=== PATIENT | female | born 1950 | race Caucasian/White ===

== ENCOUNTER 2020-12-25 15:30 | IRF | payer MEDICARE, SELFPAY ==
[2020-12-25 15:45] VITALS: BP 113/73; PULSE 83; RESP 20; TEMP 36.1; O2SAT 99; BMI 14.8
--- NOTE | 2020-12-25 18:29 | ADMGEN ---
This patient, Bita Saleh, was admitted to [facility] Room 226-01. Patient/family oriented to hospital policies and general routines including ID bracelet, bed and alarms, visiting hours, pain management, procedures, bathroom and other care routines, personal items, smoking policy, room service/diet, and visiting hours. Information on how to activate the Rapid Response Team has been discussed. Patient/Family are encouraged to report perceived risks to care and to ask questions if they do not understand what they are told or what they should do.
[2020-12-25 18:49] VITALS: PULSE 83; RESP 20; O2SAT 99
[2020-12-25 20:00] VITALS: PULSE 87; RESP 18; O2SAT 99
[2020-12-25] MEDS: HEPARIN SODIUM 5,000 UNITS/ML VIAL 5000 UNITS SUB-Q (20:48)
[2020-12-25] MEDS: MEGESTROL ACETATE (*CHEMO) 40 MG TABLET PO (20:49)
[2020-12-25] MEDS: PANTOPRAZOLE SOD SESQUIHYDRATE 20 MG TAB PO (20:49)
[2020-12-25] MEDS: NIACIN SA 500 MG TABLET PO (20:49)
[2020-12-25] MEDS: levETIRAcetam ORAL SOL 500 MG/5 ML UDC PO (20:49)
[2020-12-25 21:54] VITALS: BP 98/63; PULSE 87; RESP 18; TEMP 36.3; O2SAT 99
[2020-12-26 04:53] VITALS: BP 100/58; PULSE 79; RESP 18; TEMP 36.7; O2SAT 98
[2020-12-26 05:21] LABS: Basophils Percent Auto 0.7 % (0.2-1.2); Eosinophils Absolute Auto 0.1 K/mm3 (0-0.3); Eosinophils Percent Auto 1.3 % (0-4.4); Hematocrit 33.8 % (37.0-47.0); Hemoglobin 11.7 g/dL (12.0-15.0); Immature Granulocyte Absolute 0.03 K/mm3 (0.00-0.031); Immature Granulocyte Percent A 0.5 % (0-0.5); Lymphocytes Percent Auto 16.3 % (18.3-44.2); Mean Corpuscular HGB Conc 34.6 g/dl (32-36); Mean Corpuscular Hemoglobin 37.7 pg (26-34); Mean Platelet Volume 10.4 fl (7.4-10.4); Monocytes Absolute Auto 1.1 K/mm3 (0.1-0.6); Monocytes Percent Auto 18.1 % (2.6-8.5); Neutrophils Absolute Auto 3.9 K/mm3 (1.3-6.7); Neutrophils Percent Auto 63.1 % (45.5-73.1); Platelet Count Result 161 k/mm3 (150-375); Red Cell Distribution Width 13.6 % (11.5-14.5); White Blood Count 6.1 K/mm3 (4.5-10.0)
[2020-12-26 05:36] LABS: Anion Gap 4 mmol/L (8-16); Blood Urea Nitrogen 7 mg/dL (7-17); Calcium 9.1 mg/dL (8.4-10.2); Carbon Dioxide 32 mmol/L (22-30); Chloride 97 mmol/L (98-107); Estimated CRCL calculation 59 ml/min; Estimated Glomerular Filt Rate > 60; Glucose 117 mg/dL (65-105); Potassium 3.4 mmol/L (3.4-5.0); Sodium 133 mmol/L (137-145)
[2020-12-26] MEDS: AMOXICILLIN/CLAVULANATE K 500-125 MG TAB 1 TABLET PO ×3 (06:51→21:02)
[2020-12-26] MEDS: HEPARIN SODIUM 5,000 UNITS/ML VIAL 5000 UNITS SUB-Q ×3 (06:51→21:01)
[2020-12-26 07:15] LABS: Glucose Point of Care 116 (65-105)
[2020-12-26] MEDS: ATORVASTATIN 40 MG TABLET PO (08:26)
[2020-12-26] MEDS: RALOXIFENE HCL (*CHEMO) 60 MG TABLET PO (08:26)
[2020-12-26] MEDS: CALCIUM CARBONATE (OSCAL) 500 MG TABLET PO ×2 (08:26→17:05)
[2020-12-26] MEDS: levETIRAcetam ORAL SOL 500 MG/5 ML UDC PO ×2 (08:27→21:02)
[2020-12-26] MEDS: MEGESTROL ACETATE (*CHEMO) 40 MG TABLET PO ×2 (08:27→21:02)
[2020-12-26] MEDS: SENNOSIDES 8.6 MG TABLET 17.2 MG PO (08:27)
[2020-12-26] MEDS: NIACIN SA 500 MG TABLET PO ×2 (08:27→21:02)
[2020-12-26] MEDS: predniSONE 5 MG TABLET PO (08:27)
[2020-12-26 10:40] VITALS: BP 134/85
[2020-12-26 10:41] VITALS: BP 105/65; BP 76/41
--- NOTE | 2020-12-26 10:42 | PC.NURSE ---
taty reporting that patient became very dizzy when standing during therapy. orthostatic blood pressures done and documented. therapy stated that when standing b/p was done patient did not feel dizzy when up at that time
[2020-12-26 11:48] LABS: Glucose Point of Care 140 (65-105)
[2020-12-26 12:28] VITALS: BMI 14.8
--- NOTE | 2020-12-26 13:24 | PCNSR ---
On 12/26/20, the student, Maria Esther Jacobsen, provided care and completed [facility] documentation on this patient. I have reviewed the student's documentation and agree with the findings.
[2020-12-26 14:00] VITALS: BP 132/80; PULSE 104; RESP 20; TEMP 36.6; O2SAT 100
--- NOTE | 2020-12-26 14:03 | WPDREHABHP ---
H&P: HPI History of Present Illness Date/Time: 12/26/20 14:03 Chief Complaint: major multiple trauma with brain or spinal injury Narrative: Bita Saleh is a 70 year old femalHISTORY OF PRESENT ILLNESS: 70 years old lady has been admitted to acute rehab with the primary rehab impairment category of 18. That is major multiple trauma with brain or spinal injury in addition to the etiological diagnosis of left sylvian subarachnoid hemorrhage, T10 vertebral body compression fracture, bilateral nasal bone fractures. The patient was seen [id number] on December 26, 2020 at 11:30 a.m. # history and physical exam: 70 years old right-handed female with a past medical history of GERD, hypertension, hyperlipidemia, Sharda ptosis, prior renal transplant, and osteopenia presented to [facility] on in December 2020 after being found down by her sister. The patient arrived awake and alert oriented x1 in a cervical collar, with no recollection of the event before during or after. Physical examination revealed serum an impaction, ecchymosis of the left maxilla and left periorbital region, 1cm laceration below the left eye, small abrasion to the right knee, ecchymosis of the left knee, and twitching in the left eye. CT imaging of the head demonstrated moderate volume left subarachnoid blood products predominantly along the temporal sulci and sylvian fissure. CT of the face revealed bilateral nasal bone and nasal process fractures moderately displaced, a left periorbital laceration with associated swelling, and left maxillary sinus opacification with blood products. CT of the spine revealed a T10 compression fracture. Neurosurgery service was consulted for the subarachnoid hemorrhage and place the patient on Keppra 500 mg b.i.d. for 7 days, q.4 hours neuro check, agree to subcu heparin for DVT prophylaxis. The patient is to follow up with Neurosurgery in 4 to 5 weeks with a repeat head CT scan. The left eyebrow laceration was repaired at the bedside. Ortho spine was consulted for the T10 compression fracture, patient was placed in a Jewitt brace with instruction for activity as tolerated, ENT and plastics were consulted for the nasal bone fracture and occult maxillary fractures and plan for non operative management at this time. Patient will be scheduled for an outpatient surgery once recovered. She was placed on oral Augmentin for 7 days. The patient was admitted to Trauma ICU. Nephrology was consulted for the patient's prior history of renal transplant and patient is to remain on home dose of tacrolimus 1 mg b.i.d. and daily prednisone. Ophthalmologic was consulted for periorbital ecchymosis and patient was to follow up on an outpatient basis. Geriatrics were consulted for delirium and interventions were instituted which resulted in the resolution of the delirium. The patient experience acute blood loss anemia for which she was monitored daily with CBC and she is currently hemodynamically stable with a hemoglobin of 11.1. The patient will discharged to rehab on subcutaneous heparin for DVT prophylaxis. #COVID: The patient has not traveled outside the [place] or had contact with someone who is ill that is travel outside the [place] in the past 21 days. The patient has not traveled to an area of the [place] there is experiencing known transmission of the Coronavirus and has not had close personal contact with anyone that has. The patient does not have a fever. The patient is not experiencing lower respiratory illness symptoms. # Therapy was initiated at the acute care facility and the patient was transferred [facility], [facility] FALLS OR SURGERIES: the patient has had no major surgery in the last 100 days. The patient has had falls in the past year. The patient has had no falls with injury in the past year. The patient reports falls in the past 6 months. PAST MEDICAL HISTORY: GERD, hypertension, keratosis, osteopenia, sk
--- NOTE | 2020-12-26 14:42 | RPD ---
INDIVIDUALIZED PLAN OF CARE FOR Bita Saleh Brief Synthesis of Pre-Admission Screen, Post-Admission Evaluation and Therapy Evaluations: The patient presents to rehab with Major Multiple Trauma With with the following injuries: subarachnoid hemorrhage, T10 compression fracture, bilateral nasal bone and nasal process fractures, occult maxillary fracture, and left orbital floor fracture. Comorbidities include protein-calorie malnutrition, hypertension, acute blood loss anemia, acute respiratory failure, acute post-traumatic pain, acute mental status changes, delirium, mild periorbital ecchymosis, left eyelid laceration, hypertension, hyperlipidemia, nausea, osteoporosis, and s/p renal transplant.The complexity of the patient's medical management, nursing, and therapy needs require an inpatient rehab hospital stay with a physician-led interdisciplinary team approach. The patient?s needs will be best met in an intensive program vs. at a lower level of care. The patient requires physician services for medical oversight, management of protein-calorie malnutrition, hypertension, acute blood loss anemia, acute respiratory failure, acute post-traumatic pain, acute mental status changes, delirium, mild periorbital ecchymosis, left eyelid laceration, hypertension, hyperlipidemia, nausea, osteoporosis, s/p renal transplant () in setting of present comorbidities, and pain management. The patient requires nursing services for anticoagulation therapy, DVT prophylactics, infection protection, medication management and education, pressure relief, and wound care. Deficits include:ADLs, Balance, Endurance, Family Training/Education, Mobility, Pain Management, ROM, Safety, Strength, and Transfers. Judo Instructor/Case Management for: Discharge Planning and Patient/Family Counseling Physical Therapy: 5 days per week for 90 minutes. Treatments may include: Therapeutic Exercise, Gait Training, Neuromuscular Re-education, Transfer Training, Community Reintegration, Bed Mobility, Patient/Family Education, Wheelchair Mobility Group Therapy/Concurrent Therapy Rationales: -Improve attention span during functional activities in a distracted environment. -Enhance problem solving and/or adequate judgment skills during functional activities in a distracted environment. -Promote increased safety awareness in a distracted environment to reduce fall risk with functional tasks, transfers, and ambulation to allow a more safe, self-sufficient return to the home environment. -Improve dynamic balance skills to promote safety and independence with functional activities in a distracted environment for maximum gain. Occupational Therapy: 5 days per week for 90 minutes. Treatments may include: Therapeutic Exercise, Therapeutic Activity, Cognitive Training, Self-Care Transfer Training, Community Reintegration, Home Management, Patient/Family Education, Wheelchair Mobility Training, Energy Conservation Training Group Therapy/Concurrent Therapy Rationales: -Allow therapist to observe and teach generalization and carry-over of skills learned in individual therapy. -Enhance problem solving and sequencing skills during therapeutic activities in a distracted environment. -Promote increased safety awareness in a realistic setting to reduce fall risk with functional tasks due to visual and verbal distractions. -Increase functional level with ADLs, ADL transfers and use of adaptive equipment through therapeutic activities with others while promoting safety to allow a more safe, self-sufficient return home. Medical Prognosis: Good Anticipated Length of Stay: 10 days Rehab Goals: Eating Goal: 06-Independent Oral Hygiene Goal: 06-Independent Toileting Hygiene Goal: 06-Independent Shower/Bathe Self Goal: 06-Independent Upper Body Dressing Goal: 03-Partial/Moderate Assistance Lower Body Dressing Goal: 06-Independent Putting On/Taking Off Footwear Goal: 06-Independent Rolling Left and Right Goal: 06-Indepen
[2020-12-26] MEDS: SACCHAROMYCES BOULARDII 250 MG CAPSULE PO (17:05)
[2020-12-26 20:00] VITALS: PULSE 90; RESP 18; O2SAT 96
[2020-12-26] MEDS: PANTOPRAZOLE SOD SESQUIHYDRATE 20 MG TAB PO (21:02)
[2020-12-26 21:45] VITALS: BP 94/62; PULSE 90; RESP 18; TEMP 36.8; O2SAT 96
[2020-12-27 05:22] VITALS: BP 90/46; PULSE 94; RESP 18; TEMP 36.8; O2SAT 98
[2020-12-27] MEDS: AMOXICILLIN/CLAVULANATE K 500-125 MG TAB 1 TABLET PO ×3 (06:05→20:12)
[2020-12-27] MEDS: HEPARIN SODIUM 5,000 UNITS/ML VIAL 5000 UNITS SUB-Q ×3 (06:05→20:12)
[2020-12-27] MEDS: ACETAMINOPHEN 325 MG TABLET 650 MG PO (07:51)
[2020-12-27] MEDS: CALCIUM CARBONATE (OSCAL) 500 MG TABLET PO ×2 (08:41→17:26)
[2020-12-27] MEDS: RALOXIFENE HCL (*CHEMO) 60 MG TABLET PO (08:41)
[2020-12-27] MEDS: SACCHAROMYCES BOULARDII 250 MG CAPSULE PO ×2 (08:41→17:26)
[2020-12-27] MEDS: predniSONE 5 MG TABLET PO (08:42)
[2020-12-27] MEDS: ATORVASTATIN 40 MG TABLET PO (08:42)
[2020-12-27] MEDS: levETIRAcetam ORAL SOL 500 MG/5 ML UDC PO ×2 (08:42→20:12)
[2020-12-27] MEDS: NIACIN SA 500 MG TABLET PO ×2 (08:42→20:12)
[2020-12-27] MEDS: MEGESTROL ACETATE (*CHEMO) 40 MG TABLET PO ×2 (08:48→20:12)
[2020-12-27 14:00] VITALS: BP 97/66; PULSE 110; RESP 18; TEMP 36.3; O2SAT 97
--- NOTE | 2020-12-27 16:08 | PHAR ---
Home medication seen in pharmacy, returned to nurse at rx window. Tacrolimus 1mg capsule
[2020-12-27] MEDS: PANTOPRAZOLE SOD SESQUIHYDRATE 20 MG TAB PO (20:12)
[2020-12-28 06:00] VITALS: BP 135/80; PULSE 89; RESP 20; TEMP 36.6; O2SAT 98
[2020-12-28] MEDS: HEPARIN SODIUM 5,000 UNITS/ML VIAL 5000 UNITS SUB-Q ×3 (06:08→20:22)
[2020-12-28] MEDS: AMOXICILLIN/CLAVULANATE K 500-125 MG TAB 1 TABLET PO ×3 (06:08→20:20)
[2020-12-28] MEDS: ATORVASTATIN 40 MG TABLET PO (09:24)
[2020-12-28] MEDS: NIACIN SA 500 MG TABLET PO ×2 (09:24→20:19)
[2020-12-28] MEDS: SACCHAROMYCES BOULARDII 250 MG CAPSULE PO ×2 (09:24→16:07)
[2020-12-28] MEDS: predniSONE 5 MG TABLET PO (09:24)
[2020-12-28] MEDS: MEGESTROL ACETATE (*CHEMO) 40 MG TABLET PO ×2 (09:24→20:18)
[2020-12-28] MEDS: CALCIUM CARBONATE (OSCAL) 500 MG TABLET PO ×2 (09:24→16:07)
[2020-12-28] MEDS: levETIRAcetam ORAL SOL 500 MG/5 ML UDC PO ×2 (09:24→20:18)
[2020-12-28] MEDS: RALOXIFENE HCL (*CHEMO) 60 MG TABLET PO (09:25)
[2020-12-28 14:00] VITALS: BP 102/64; PULSE 89; RESP 18; TEMP 36.5; O2SAT 97
[2020-12-28] MEDS: PANTOPRAZOLE SOD SESQUIHYDRATE 20 MG TAB PO (20:21)
[2020-12-28 22:00] VITALS: BP 103/65; PULSE 93; RESP 18; TEMP 36.8; O2SAT 95
[2020-12-29] MEDS: HEPARIN SODIUM 5,000 UNITS/ML VIAL 5000 UNITS SUB-Q ×3 (05:37→22:27)
[2020-12-29] MEDS: AMOXICILLIN/CLAVULANATE K 500-125 MG TAB 1 TABLET PO ×3 (05:37→22:27)
[2020-12-29 06:00] VITALS: BP 102/60; PULSE 83; RESP 18; TEMP 36.9; O2SAT 95
[2020-12-29 08:00] VITALS: PULSE 83; RESP 18; O2SAT 95
[2020-12-29] MEDS: MEGESTROL ACETATE (*CHEMO) 40 MG TABLET PO ×2 (08:40→20:07)
[2020-12-29] MEDS: CALCIUM CARBONATE (OSCAL) 500 MG TABLET PO ×2 (08:40→17:55)
[2020-12-29] MEDS: RALOXIFENE HCL (*CHEMO) 60 MG TABLET PO (08:40)
[2020-12-29] MEDS: levETIRAcetam ORAL SOL 500 MG/5 ML UDC PO (08:40)
[2020-12-29] MEDS: ATORVASTATIN 40 MG TABLET PO (08:40)
[2020-12-29] MEDS: NIACIN SA 500 MG TABLET PO ×2 (08:40→20:07)
[2020-12-29] MEDS: SACCHAROMYCES BOULARDII 250 MG CAPSULE PO ×2 (08:40→17:55)
[2020-12-29] MEDS: predniSONE 5 MG TABLET PO (08:40)
[2020-12-29 14:00] VITALS: BP 105/60; PULSE 102; RESP 20; TEMP 36.8; O2SAT 100
--- NOTE | 2020-12-29 14:37 | WPDNEURORHBP ---
Subjective Date/time seen: 12/29/20 14:37 70 years old with major multiple trauma with brain or spinal injury in addition to the etiological diagnosis of left sylvian subarachnoid hemorrhage, T10 vertebral body compression fracture and bilateral nasal bone fractures Review of Systems Review of Systems: All systems reviewed & are unremarkable except as noted in HPI and below Functional Status Ambulation Ability Ability to Ambulate 10 Feet: Independent Ability to Ambulate 50 Feet With 2 Turns: Independent Ability to Ambulate 150 Feet: Independent Ambulation Assistive Devices: Walker, Wheeled Transfers Ability Ability to Transfer In/Out of Chair: Contact Guard Exam Const: General: comfortable, alert and awake Nutritional Appearance: thin and underweight Orientation/consciousness: patient oriented x3 Limitations: physical limitations HENMT: Head: normocephalic Ears: hearing grossly normal bilaterally General nose exam: Normal external nose present and No nasal discharge present Face and sinus: normal facial exam Mouth: Yes Normal oral and palatal mucosa present Eyes: Visual Smallwood: normal visual smallwood by confrontation Alignment and Position: alignment normal Periorbital: periorbital findings abnormal ( left ecchymosis) Conjunctivae: conjunctivae normal Sclera: sclerae normal Cornea: corneas normal Pupils: Equal, round and reactive pupils present EOM: EOMs intact bilaterally Direct Ophthalmoscopy: normal light reflex Neck: Neck: full ROM Resp: Effort & Inspection: normal respiratory effort Auscultation: clear to auscultation bilaterally Cardio: Rate: regular rate Rhythm: regular rhythm GI: Auscultation: normal bowel sounds Neuro: General: patient oriented x3 Cranial nerves: Yes CN's II-XII intact bilaterally Cognition (Neuro): normal cognition Speech: normal speech Motor exam (neuro): 5/5 motor strength present throughout ( generally decreased) Sensory Exam: normal sensation Deep tendon reflexes (DTR's): Right triceps reflex intensity grade: 1+, Left triceps reflex intensity grade: 1+, Rt Biceps (C5, C6): 1+, Left biceps reflex intensity grade: 1+, Right brachioradialis reflex intensity grade: 1+, Left brachioradialis reflex intensity grade: 1+, Right patellar reflex intensity grade: 1+, Left patellar reflex intensity grade: 1+, Right ankle reflex intensity grade: 1+ and Left ankle reflex intensity grade: 1+ Plantar Reflex Responses: downgoing: bilateral Coordination: [id number] test normal Psych: Appearance: grossly normal Speech and movement: Normal speech and movement present Affect: normal affect Attitude: cooperative Thought process: Normal thought process present Thought content: Yes Normal thought content present Insight: Fair insight present (Psych) Judgement: Fair judgement present (Psych) Objective Data Vital Signs Vital Signs: Vital Signs - 24 hr 12/28/20 22:00 12/29/20 06:00 12/29/20 08:00 Temperature 36.8 C 36.9 C Pulse Rate 93 83 83 Respiratory Rate 18 18 18 Blood Pressure 103/65 102/60 Pulse Oximetry 95 95 95 12/29/20 14:00 Temperature 36.8 C Pulse Rate 102 H Respiratory Rate 20 Blood Pressure 105/60 Pulse Oximetry 100 Intake/Output Intake/Output: Intake & Output 12/26/20 12/27/20 12/28/20 12/29/20 23:59 23:59 23:59 23:59 Intake Total 720 720 840 720 Balance 720 720 840 720 Meds/Results Medications: Active Medications Generic Name Dose Route Start Last Admin Trade Name Freq PRN Reason Stop Dose Admin Acetaminophen 650 mg 12/25/20 19:37 12/27/20 07:51 Acetaminophen 325 Mg Tablet PO 650 mg Q4-6H PRN Administration Mild Pain (1-3) Amoxicillin/Clavulanate Potassium 1 tablet 12/26/20 06:00 12/29/20 14:33 Amoxicillin/Clavulanate K 500-125 Mg Tab PO 01/01/21 22:01 1 tablet Q8HR SANCHO Administration Atorvastatin Calcium 40 mg 12/26/20 09:00 12/29/20 08:40 Atorvastatin 40 Mg Tablet PO 40 mg DAILY SANCHO Administration Calcium
[2020-12-29] MEDS: PANTOPRAZOLE SOD SESQUIHYDRATE 20 MG TAB PO (20:07)
[2020-12-29] MEDS: levETIRAcetam 500 MG TABLET PO (20:07)
[2020-12-29 22:00] VITALS: BP 108/62; PULSE 88; RESP 16; TEMP 37.1; O2SAT 98
[2020-12-30] MEDS: HEPARIN SODIUM 5,000 UNITS/ML VIAL 5000 UNITS SUB-Q (05:55)
[2020-12-30] MEDS: AMOXICILLIN/CLAVULANATE K 500-125 MG TAB 1 TABLET PO ×3 (05:55→20:57)
[2020-12-30 06:00] VITALS: BP 143/85; PULSE 94; RESP 18; TEMP 36.6; O2SAT 96
[2020-12-30] MEDS: SACCHAROMYCES BOULARDII 250 MG CAPSULE PO ×2 (08:10→17:16)
[2020-12-30] MEDS: NIACIN SA 500 MG TABLET PO ×2 (08:11→20:57)
[2020-12-30] MEDS: CALCIUM CARBONATE (OSCAL) 500 MG TABLET PO ×2 (08:11→17:16)
[2020-12-30] MEDS: RALOXIFENE HCL (*CHEMO) 60 MG TABLET PO (08:11)
[2020-12-30] MEDS: ATORVASTATIN 40 MG TABLET PO (08:11)
[2020-12-30] MEDS: predniSONE 5 MG TABLET PO (08:11)
[2020-12-30] MEDS: levETIRAcetam 500 MG TABLET PO (08:11)
[2020-12-30] MEDS: MEGESTROL ACETATE (*CHEMO) 40 MG TABLET PO ×2 (08:11→20:56)
--- NOTE | 2020-12-30 09:10 | PCPTNOTE ---
Bita Saleh was evaluated for a wheeled walker on 12/30/2020 by this physical therapist. The wheeled walker will resolve patient's mobility limitations and will be used for ADL's within the home. The patient can safely use the wheeled walker. ?The wheeled walker will resolve the patient?s mobility deficits, including orthostasis, dizziness, decreased strength and balance.
--- NOTE | 2020-12-30 11:45 | PC.NURSE ---
therapy reporting unusual rash on patient, it is widespread: pink to red in color- fine, flat, does not itch. patient has not had any unusual meds or foods this morning. no different soaps used. will continue to monitor and report to
--- NOTE | 2020-12-30 12:00 | PC.NURSE ---
Rash much professor sculpture in color and much less widespread over body, still without itch.
--- NOTE | 2020-12-30 12:41 | PC.NURSE ---
Dr. Griggs here, orders to continue to monitor rash, Keppra d/c'd and heparin d/c'd. Patient remains without c/o discomfort or itching
--- NOTE | 2020-12-30 13:54 | WPDNEURORHBP ---
Subjective Date/time seen: 12/30/20 13:54 70 years old with major multiple trauma, in addition to the left sylvian subarachnoid hemorrhage and T10 vertebral body compression fracture and bilateral nasal bone fracture has been involving the physical therapy and occupational therapy, her lab revealed WBC 6.1 hemoglobin 11.7 platelet count 161, basic metabolic panel is fairly normal with blood sugar of 140 and calcium of 9.1, she remained stable with temp of 36.6? pulse 94 Thatch 18 pulse ox 96 on room air and a blood pressure 143/85 Review of Systems Review of Systems: All systems reviewed & are unremarkable except as noted in HPI and below Functional Status Ambulation Ability Ability to Ambulate 10 Feet: Independent Ability to Ambulate 50 Feet With 2 Turns: Independent Ability to Ambulate 150 Feet: Independent Ambulation Assistive Devices: Walker, Wheeled Transfers Ability Ability to Transfer In/Out of Chair: Contact Guard Exam Const: General: cooperative, comfortable and no acute distress Nutritional Appearance: average body habitus, thin and underweight Orientation/consciousness: patient oriented x3 HENMT: Head: normocephalic Ears: hearing grossly normal bilaterally General nose exam: No nasal discharge present Face and sinus: normal facial exam Mouth: Yes Normal oral and palatal mucosa present Eyes: General: appearance normal, both eyes and all related structures Alignment and Position: alignment normal Periorbital: periorbital findings normal Eyelids: eyelids normal Conjunctivae: conjunctivae normal Sclera: sclerae normal Cornea: corneas normal Pupils: Equal, round and reactive pupils present Neck: Neck: full ROM Resp: Effort & Inspection: able to speak in complete sentences Auscultation: clear to auscultation bilaterally Cardio: Rate: regular rate Rhythm: regular rhythm GI: Auscultation: normal bowel sounds Skin: General skin exam: no rashes or lesions noted Neuro: General: patient oriented x3 Cranial nerves: Yes CN's II-XII intact bilaterally Cognition (Neuro): normal cognition Speech: normal speech Gait exam (Neuro): Normal gait present Motor exam (neuro): Pronator motor function not present, No tremor noted and Abnormal motor strength present Sensory Exam: normal sensation Psych: Appearance: grossly normal Objective Data Vital Signs Vital Signs: Vital Signs - 24 hr 12/29/20 14:00 12/29/20 22:00 12/30/20 06:00 Temperature 36.8 C 37.1 C 36.6 C Pulse Rate 102 H 88 94 Respiratory Rate 20 16 18 Blood Pressure 105/60 108/62 143/85 H Pulse Oximetry 100 98 96 Intake/Output Intake/Output: Intake & Output 12/27/20 12/28/20 12/29/20 12/30/20 23:59 23:59 23:59 23:59 Intake Total 720 840 720 240 Balance 720 840 720 240 Meds/Results Medications: Active Medications Generic Name Dose Route Start Last Admin Trade Name Opal PRN Reason Stop Dose Admin Acetaminophen 650 mg 12/25/20 19:37 12/27/20 07:51 Acetaminophen 325 Mg Tablet PO 650 mg Q4-6H PRN Administration Mild Pain (1-3) Amoxicillin/Clavulanate Potassium 1 tablet 12/26/20 06:00 12/30/20 05:55 Amoxicillin/Clavulanate K 500-125 Mg Tab PO 01/01/21 22:01 1 tablet Q8HR SANCHO Administration Atorvastatin Calcium 40 mg 12/26/20 09:00 12/30/20 08:11 Atorvastatin 40 Mg Tablet PO 40 mg DAILY SANCHO Administration Calcium Carbonate 500 mg 12/26/20 08:00 12/30/20 08:11 Calcium Carbonate (Oscal) 500 Mg Tablet PO 500 mg BIDWM SANCHO Administration Ergocalciferol 50,000 unit 01/05/21 09:00 Ergocalciferol 50,000 Unit Capsule PO Mo SANCHO Folic Acid/Cyanocobalamin/pyridoxin 1 tab 12/26/20 09:00 12/30/20 08:10 Cyanocobalamin/Fa/Pyridoxine (Foltx) Tablet PO 01/25/21 09:01 1 tab DAILY SANCHO Administration Loperamide HCl 2 mg 12/25/20 19:37 Loperamide Hcl 2 Mg Capsule PO DAILY PRN Diarrhea Megestrol Acetate 40 mg 12/25/20 21:00 12/30/20 08:11 Megestrol Acetate (*Chemo)
[2020-12-30 14:00] VITALS: BP 97/69; PULSE 112; RESP 18; TEMP 36.8; O2SAT 98
[2020-12-30 20:30] VITALS: PULSE 91; RESP 20; O2SAT 100
[2020-12-30] MEDS: PANTOPRAZOLE SOD SESQUIHYDRATE 20 MG TAB PO (21:00)
[2020-12-30 21:06] VITALS: BP 139/80; PULSE 91; RESP 20; TEMP 36.2; O2SAT 100
[2020-12-31] MEDS: AMOXICILLIN/CLAVULANATE K 500-125 MG TAB 1 TABLET PO ×3 (05:33→19:57)
[2020-12-31 05:38] VITALS: BP 109/64; PULSE 80; RESP 18; TEMP 37.1; O2SAT 99
[2020-12-31] MEDS: CALCIUM CARBONATE (OSCAL) 500 MG TABLET PO ×2 (08:14→17:28)
[2020-12-31] MEDS: SACCHAROMYCES BOULARDII 250 MG CAPSULE PO ×2 (09:23→17:28)
[2020-12-31] MEDS: predniSONE 5 MG TABLET PO (09:23)
[2020-12-31] MEDS: NIACIN SA 500 MG TABLET PO ×2 (09:23→19:57)
[2020-12-31] MEDS: ATORVASTATIN 40 MG TABLET PO (09:24)
[2020-12-31] MEDS: RALOXIFENE HCL (*CHEMO) 60 MG TABLET PO (09:24)
[2020-12-31] MEDS: MEGESTROL ACETATE (*CHEMO) 40 MG TABLET PO ×2 (09:24→19:57)
[2020-12-31 14:00] VITALS: BP 117/73; PULSE 82; RESP 20; TEMP 36.6; O2SAT 97
[2020-12-31] MEDS: PANTOPRAZOLE SOD SESQUIHYDRATE 20 MG TAB PO (19:57)
[2020-12-31 22:00] VITALS: BP 107/64; PULSE 66; RESP 16; TEMP 36.8; O2SAT 97
[2021-01-01] MEDS: AMOXICILLIN/CLAVULANATE K 500-125 MG TAB 1 TABLET PO ×3 (05:56→20:23)
[2021-01-01 06:00] VITALS: BP 113/68; PULSE 83; RESP 16; TEMP 37; O2SAT 97
[2021-01-01] MEDS: NIACIN SA 500 MG TABLET PO ×2 (09:13→20:23)
[2021-01-01] MEDS: predniSONE 5 MG TABLET PO (09:13)
[2021-01-01] MEDS: SACCHAROMYCES BOULARDII 250 MG CAPSULE PO ×2 (09:13→17:53)
[2021-01-01] MEDS: CALCIUM CARBONATE (OSCAL) 500 MG TABLET PO ×2 (09:14→17:53)
[2021-01-01] MEDS: MEGESTROL ACETATE (*CHEMO) 40 MG TABLET PO ×2 (09:14→20:23)
[2021-01-01] MEDS: RALOXIFENE HCL (*CHEMO) 60 MG TABLET PO (09:15)
[2021-01-01] MEDS: ATORVASTATIN 40 MG TABLET PO (09:15)
--- NOTE | 2021-01-01 12:51 | WPDNEURORHBP ---
Subjective Date/time seen: 01/01/21 12:51 70 years old with major multiple trauma and subarachnoid hemorrhage in addition to T10 vertebral body compression fracture bilateral nasal bone fracture has been involved the physical therapy and occupational therapy and has been extremely pleasant and cooperative her pulse is 97 blood pressure 113/68 temp 37.0? and no new lab Functional Status Ambulation Ability Ability to Ambulate 10 Feet: Independent Ability to Ambulate 50 Feet With 2 Turns: Independent Ability to Ambulate 150 Feet: Independent Ambulation Assistive Devices: Walker, Wheeled Transfers Ability Ability to Transfer In/Out of Chair: Independent Exam Const: General: comfortable and no acute distress Nutritional Appearance: average body habitus Limitations: physical limitations HENMT: Head: normocephalic Ears: hearing grossly normal bilaterally General nose exam: Normal external nose present Eyes: General: appearance normal, both eyes and all related structures Neck: Neck: full ROM Resp: Effort & Inspection: normal respiratory effort Auscultation: clear to auscultation bilaterally Cardio: Rate: regular rate Rhythm: regular rhythm GI: Auscultation: normal bowel sounds Neuro: General: patient oriented x3 Cranial nerves: Yes CN's II-XII intact bilaterally Cognition (Neuro): normal cognition Speech: normal speech Motor exam (neuro): Pronator motor function not present and No tremor noted Sensory Exam: normal sensation Deep tendon reflexes (DTR's): Right triceps reflex intensity grade: 1+, Left triceps reflex intensity grade: 1+, Rt Biceps (C5, C6): 1+, Left biceps reflex intensity grade: 1+, Right brachioradialis reflex intensity grade: 1+, Left brachioradialis reflex intensity grade: 1+, Right patellar reflex intensity grade: 1+, Left patellar reflex intensity grade: 1+, Right ankle reflex intensity grade: 1+ and Left ankle reflex intensity grade: 1+ Plantar Reflex Responses: downgoing: bilateral Psych: Appearance: grossly normal Objective Data Vital Signs Vital Signs: Vital Signs - 24 hr 12/31/20 14:00 12/31/20 22:00 01/01/21 06:00 Temperature 36.6 C 36.8 C 37.0 C Pulse Rate 82 66 83 Respiratory Rate 20 16 16 Blood Pressure 117/73 107/64 113/68 Pulse Oximetry 97 97 97 Intake/Output Intake/Output: Intake & Output 12/29/20 12/30/20 12/31/2018/21 23:59 23:59 23:59 23:59 Intake Total 720 1200 1200 240 Balance 720 1200 1200 240 Meds/Results Medications: Active Medications Generic Name Dose Route Start Last Admin Trade Name Opal PRN Reason Stop Dose Admin Acetaminophen 650 mg 12/25/20 19:37 12/27/20 07:51 Acetaminophen 325 Mg Tablet PO 650 mg Q4-6H PRN Administration Mild Pain (1-3) Amoxicillin/Clavulanate Potassium 1 tablet 12/26/20 06:00 01/01/21 05:56 Amoxicillin/Clavulanate K 500-125 Mg Tab PO 01/01/21 22:01 1 tablet Q8HR SANCHO Administration Atorvastatin Calcium 40 mg 12/26/20 09:00 01/01/21 09:15 Atorvastatin 40 Mg Tablet PO 40 mg DAILY SANCHO Administration Calcium Carbonate 500 mg 12/26/20 08:00 01/01/21 09:14 Calcium Carbonate (Oscal) 500 Mg Tablet PO 500 mg BIDWM SANCHO Administration Ergocalciferol 50,000 unit 01/05/21 09:00 Ergocalciferol 50,000 Unit Capsule PO Mo SANCHO Folic Acid/Cyanocobalamin/pyridoxin 1 tab 12/26/20 09:00 01/01/21 09:14 Cyanocobalamin/Fa/Pyridoxine (Foltx) Tablet PO 01/25/21 09:01 1 tab DAILY SANCHO Administration Loperamide HCl 2 mg 12/25/20 19:37 Loperamide Hcl 2 Mg Capsule PO DAILY PRN Diarrhea Megestrol Acetate 40 mg 12/25/20 21:00 01/01/21 09:14 Megestrol Acetate (*Chemo) 40 Mg Tablet PO 40 mg Q12HR SANCHO Administration Niacin 500 mg 12/25/20 21:00 01/01/21 09:13 Niacin Sa 500 Mg Tablet PO 500 mg Q12HR SANCHO Administration Ondansetron HCl 4 mg 12/25/20 19:37 Ondansetron Hcl Odt 4 Mg Tablet PO Q6-8H PRN Nausea Oxycodone HCl 5 mg 02
[2021-01-01 14:00] VITALS: BP 126/64; PULSE 88; RESP 20; TEMP 36.6; O2SAT 100
[2021-01-01] MEDS: PANTOPRAZOLE SOD SESQUIHYDRATE 20 MG TAB PO (20:23)
[2021-01-01] MEDS: ACETAMINOPHEN 325 MG TABLET 650 MG PO (20:25)
[2021-01-01 22:00] VITALS: BP 99/66; PULSE 89; RESP 18; TEMP 36.4; O2SAT 97
[2021-01-02 04:28] VITALS: BP 127/73; PULSE 79; RESP 18; TEMP 36.8; O2SAT 98
[2021-01-02 05:07] LABS: Basophils Percent Auto 0.5 % (0.2-1.2); Eosinophils Absolute Auto 0.1 K/mm3 (0-0.3); Eosinophils Percent Auto 1.3 % (0-4.4); Hematocrit 32.9 % (37.0-47.0); Hemoglobin 11.2 g/dL (12.0-15.0); Immature Granulocyte Absolute 0.02 K/mm3 (0.00-0.031); Immature Granulocyte Percent A 0.3 % (0-0.5); Lymphocytes Absolute Auto 1.16 K/mm3 (0.9-3.2); Lymphocytes Percent Auto 15.1 % (18.3-44.2); Mean Corpuscular Hemoglobin 38.2 pg (26-34); Mean Corpuscular Volume 112.3 fl (80-100); Mean Platelet Volume 9.8 fl (7.4-10.4); Monocytes Absolute Auto 0.8 K/mm3 (0.1-0.6); Monocytes Percent Auto 10.4 % (2.6-8.5); Neutrophils Absolute Auto 5.6 K/mm3 (1.3-6.7); Neutrophils Percent Auto 72.4 % (45.5-73.1); Platelet Count Result 218 k/mm3 (150-375); Red Blood Count 2.93 M/mm3 (4.2-5.4); Red Cell Distribution Width 14.2 % (11.5-14.5); White Blood Count 7.7 K/mm3 (4.5-10.0)
[2021-01-02 05:23] LABS: Anion Gap 7 mmol/L (8-16); Blood Urea Nitrogen 6 mg/dL (7-17); Calcium 9.3 mg/dL (8.4-10.2); Carbon Dioxide 27 mmol/L (22-30); Chloride 103 mmol/L (98-107); Estimated CRCL calculation 59 ml/min; Estimated Glomerular Filt Rate > 60; Glucose 104 mg/dL (65-105); Potassium 3.6 mmol/L (3.4-5.0); Sodium 137 mmol/L (137-145)
[2021-01-02] MEDS: MEGESTROL ACETATE (*CHEMO) 40 MG TABLET PO (08:38)
[2021-01-02] MEDS: ATORVASTATIN 40 MG TABLET PO (08:38)
[2021-01-02] MEDS: SACCHAROMYCES BOULARDII 250 MG CAPSULE PO (08:38)
[2021-01-02] MEDS: NIACIN SA 500 MG TABLET PO (08:38)
[2021-01-02] MEDS: CALCIUM CARBONATE (OSCAL) 500 MG TABLET PO (08:38)
[2021-01-02] MEDS: predniSONE 5 MG TABLET PO (08:39)
[2021-01-02] MEDS: RALOXIFENE HCL (*CHEMO) 60 MG TABLET PO (08:39)
--- NOTE | 2021-01-02 12:41 | PCNFU ---
Nutrition Follow-Up Complete: No nutritional diagnosis at this time. Goal: Meet estimated nutritional needs. Pt current nutrition is Regular diet. Last recorded weight is 41.8 kg. No new weight. Recommend re-weighing patient if not discharged. Bowel Motility: + BM 01/01 Labs Reviewed: Hgb 11.2, Hct 32.9, BUN 6, Cr 0.50 Meds Noted: Megace, Niacin, Zofran, Protonix, Lipitor, Miralax, Augmentin, Evista, Oscal, Prednisone, Drisdol, Keppra, Senokot Additional Notes: Spoke with patient today. Patient is doing great. She is eating at least 75% of all meals and reports having a great appetite. She is being discharged later today, 01/02. Monitor patients labs, medications, oral intake, and weight every 7 days.
--- NOTE | 2021-01-02 12:50 | PCNSR ---
On 01/02/21, the student, Maria Esther Jacobsen, provided care and completed [facility] documentation on this patient. I have reviewed the student's documentation and agree with the findings.
--- NOTE | 2021-01-05 10:57 | PM.DS ---
DS: Admitting Diagnosis Admitting Diagnosis Admitting Diagnosis: major multiple trauma with spinal and brain injury and etiological diagnosis of left sylvian subarachnoid hemorrhage, T10 vertebral body compression fractures, bilateral nasal bone fractures DS: Summary Hospital Course Hospital Course: gradual improvement and stable Time Spent with Patient Time attestation: :ADMISSION FUNCTION: 70 years old admitted to the hospital with primary rehab impairment category of major multiple trauma with brain or spinal injury in addition to the etiological diagnosis of left sylvian subarachnoid hemorrhage, T10 vertebral body compression fracture, bilateral nasal bone fractures, In addition to the history of 1. GERD 2. Hypertension 3. Hyperlipidemia 4. Keratosis 5. Osteopenia, at the time of admission her level of function was as follows. Eating independent Oral Care supervision supervision[] Shower/Bathing substantial or maximal assisted Upper Body Dressing substantial or maximal assistance Lower Body Dressing partial assistance Donning/[place] Footwear partial assistance Rolling Left and Right supervision Sit to Lying supervision Lying to Sitting supervision Sit to Stand supervision Bed to Chair Transfers substantial or maximal assistance Toilet Transfers supervision Car Transfers substantial or maximal assistance Walking 10' substantial or maximal assistance Walking 50' with Two Turns substantial or maximal assistance Walking 150' unable Curb or Step supervision 4 Steps supervision 12 Steps supervision Picking Up Object substantial or maximal assist [Wheelchair Mobility 50'] not applicable [Wheelchair Mobility 150'] not applicable GOALS: Eating [INDEPENDENT] Oral Care [INDEPENDENT] Toileting Hygiene [INDEPENDENT] Shower/Bathing [INDEPENDENT] Upper Body Dressing partial assistance Lower Body Dressing [INDEPENDENT] Donning/[place] Footwear [INDEPENDENT] Rolling Left and Right [INDEPENDENT] Sit to Lying [INDEPENDENT] Lying to Sitting [INDEPENDENT] Sit to Stand [INDEPENDENT] Bed to Chair Transfers [INDEPENDENT] Toilet Transfers [INDEPENDENT] Car Transfers [INDEPENDENT] Walking 10' [INDEPENDENT] Walking 50' with Two Turns [INDEPENDENT] Walking 150' [INDEPENDENT] Curb or Step [INDEPENDENT] 4 Steps [INDEPENDENT] 12 Steps [INDEPENDENT] Picking Up Object [INDEPENDENT] [Wheelchair Mobility 50'] not applicable [Wheelchair Mobility 150'] not applicable DISCHARGE PERFORMANCE: Eating [INDEPENDENT] Oral Care [INDEPENDENT] Toileting Hygiene [INDEPENDENT] Shower/Bathing set up Upper Body Dressing partial assistance Lower Body Dressing set up footwear set up Rolling Left and Right [INDEPENDENT] Sit to Lying [INDEPENDENT] Lying to Sitting [INDEPENDENT] Sit to Stand [INDEPENDENT] Bed to Chair Transfers [INDEPENDENT] Toilet Transfers [INDEPENDENT] Car Transfers [INDEPENDENT] Walking 10' [INDEPENDENT] Walking 50' with Two Turns [INDEPENDENT] Walking 150' [INDEPENDENT] Curb or Step [INDEPENDENT] 4 Steps [INDEPENDENT] 12 Steps [INDEPENDENT] Picking Up Object [INDEPENDENT] [Wheelchair Mobility 50'] not applicable [Wheelchair Mobility 150'] not applicable # during the hospitalization patient remained actively involved the physical therapy and occupational therapy at the time of discharge she was able to ambulate up to 150ft independently with a wheeled walker and was also able to transfer in and out of chair independently. she remained afebrile with normal vital signs blood pressure 127/73 pulse ox 98 and temp of 36.8? with pulse 79 respiration 18. her last lab was on 01/02 which revealed hemoglobin 11.2 WBC 7.7 and platelet count of 218 but her MCV was 112.3. she had no falls throughout the hospitalization was discharged to her home and her condition improved and was stable The patient had [no falls]. Discharge Plan Discharge Attending physician on discharge: Solis Hsu Discharging Clinician: Solis Hsu
== END 2021-01-02 14:05 | disposition home or self-care (01) | DRG 949 ==
PROVIDERS: Admitting Provider Psychiatry & Neurology Neurology; PCP Physician Assistant; Visit Provider Psychiatry & Neurology Neurology
DX: S06.6X9D Traumatic subarachnoid hemorrhage with loss of consciousness of unspecified duration, subsequent encounter (principal); Z94.0 Kidney transplant status; E46 Unspecified protein-calorie malnutrition; S02.32XD Fracture of orbital floor, left side, subsequent encounter for fracture with routine healing; S02.40DD Maxillary fracture, left side, subsequent encounter for fracture with routine healing; S22.070D Wedge compression fracture of T9-T10 vertebra, subsequent encounter for fracture with routine healing; S02.2XXD Fracture of nasal bones, subsequent encounter for fracture with routine healing; S80.212D Abrasion, left knee, subsequent encounter; E78.5 Hyperlipidemia, unspecified; I10 Essential (primary) hypertension; K21.9 Gastro-esophageal reflux disease without esophagitis; M85.80 Other specified disorders of bone density and structure, unspecified site; Z85.828 Personal history of other malignant neoplasm of skin; Z23 Encounter for immunization; X58.XXXD Exposure to other specified factors, subsequent encounter
CPT/HCPCS: 36415; 80048; 82948; 85025; 90471; 90653; 97110; 97116; 97161; 97165; 97530; 97535; A9270; G0008; J1644; J7512